=== PATIENT | female | born 1990 | race Caucasian/White ===

== ENCOUNTER → 2016-05-14 | Outpatient (REF) | payer OTHER ==
[~2016-05-14] MED LIST: ACET50TA PO; ANUS2.5C2 PR; COLA50CA3 PO; IBUP600T26 PO; MOM30SS PO; PRENTAB9 PO
== END ==
LOC: M SFHCLERA 14:57
PROVIDERS: ATTEND Physician Assistant
DX: R23.8 Other skin changes (principal); F41.9 Anxiety disorder, unspecified; Z53.9 Procedure and treatment not carried out, unspecified reason

== ENCOUNTER → 2016-05-21 | Outpatient (REF) | payer OTHER ==
[2016-05-21 11:38] LABS: MEAN CORPUSCULAR HEMOGLOBIN 29.5 pg (27.0-33.0); MEAN CORPUSCULAR HGB CONC 33.7 g/dl (32.0-36.5); MEAN CORPUSCULAR VOLUME 87.6 fl (80.0-96.0); RED CELL DISTRIBUTION WIDTH 12.9 % (11.5-14.5); WHITE BLOOD COUNT 6.4 K/mm3 (4.0-10.0)
[2016-05-21 11:43] LABS: INR 0.95
[2016-05-21 12:03] LABS: ALBUMIN 4.1 GM/DL (3.2-5.2); ALBUMIN/GLOBULIN RATIO 1.28 (1.00-1.93); ALKALINE PHOSPHATASE 79 U/L (45-117); ALT/SGPT 32 U/L (12-78); ANION GAP 6 MEQ/L (8-16); AST/SGOT 19 U/L (15-37); BILIRUBIN,TOTAL 0.8 MG/DL (0.2-1.0); BLOOD UREA NITROGEN 16 MG/DL (7-18); CALCIUM LEVEL 9.2 MG/DL (8.5-10.1); CARBON DIOXIDE LEVEL 28 MEQ/L (21-32); CHLORIDE LEVEL 107 MEQ/L (98-107); CREATININE FOR GFR 0.77 MG/DL (0.55-1.02); GLOMERULAR FILTRATION RATE > 60.0 (>60); GLUCOSE, FASTING 83 MG/DL (70-105); POTASSIUM SERUM 4.3 MEQ/L (3.5-5.1); SODIUM LEVEL 141 MEQ/L (136-145); TOTAL PROTEIN 7.3 GM/DL (6.4-8.2)
== END ==
LOC: M SFHCLERA 08:26
PROVIDERS: ATTEND Physician Assistant
DX: R23.8 Other skin changes (principal); F41.9 Anxiety disorder, unspecified

== ENCOUNTER → 2016-06-21 | Outpatient (CLI) | payer OTHER ==
[2016-06-21 11:45] LABS: BASO % 0.3 % (0.0-1.0); EOS % 0.3 % (0.0-3.0); LARGE UNSTAINED CELL # 0.1 K/mm3 (0.0-0.4); LARGE UNSTAINED CELL % 1.6 % (0.0-4.0); LYMPH # 2.7 K/mm3 (1.5-6.5); LYMPH % 33.9 % (24.0-44.0); MONO # 0.3 K/mm3 (0.0-0.8); MONO % 4.6 % (0.0-5.0); NEUTROPHILS # 4.4 K/mm3 (1.8-7.7); NEUTROPHILS % 59.4 % (36.0-66.0); PLATELET COUNT, AUTOMATED 181 k/mm3 (150-450); RED CELL DISTRIBUTION WIDTH 13.2 % (11.5-14.5); WHITE BLOOD COUNT 7.5 K/mm3 (4.0-10.0)
[2016-06-21 12:19] LABS: HBsAg Prenatal NEGATIVE (NEGATIVE)
[2016-06-21 12:46] LABS: HIV SCREEN CENTAUR NEGATIVE (NEGATIVE)
== END ==
LOC: M LRY 08:53
PROVIDERS: ATTEND Advanced Practice Midwife
DX: Z36 Encounter for antenatal screening of mother (principal); Z3A.00 Weeks of gestation of pregnancy not specified

== ENCOUNTER → 2016-06-25 | Outpatient (REF) | payer OTHER | LOC: M LAB REF 16:48 | PROVIDERS: ATTEND Advanced Practice Midwife | DX: Z34.81 Encounter for supervision of other normal pregnancy, first trimester (principal) ==

== ENCOUNTER → 2016-08-20 | Outpatient (REF) | payer OTHER | LOC: M LAB REF 10:56 | PROVIDERS: ATTEND Advanced Practice Midwife | DX: Z36 Encounter for antenatal screening of mother (principal); Z3A.00 Weeks of gestation of pregnancy not specified ==

== ENCOUNTER → 2016-09-14 | Outpatient (CLI) | payer OTHER ==
--- NOTE | 2016-09-14 08:32 | REP ---
Clinical: Anatomical evaluation. Comparison: None . Findings: Examination demonstrates a single live intrauterine in cephalic presentation. motion is identified by technologist. Placenta is noted anteriorly and grade zero without evidence for placenta previa or abruption. Amniotic fluid volume is normal. Cervix measures 4.0 cm in length and appears closed. No evidence for nuchal cord. Gestational age by LMP 19 weeks 5 days with LAUREEN 02/03/2017 . Gestational age by current measurements 20 weeks 2 days with LAUREEN 01/30/2017 . FHR equals 133 beats per minute. BPD 5.0 cm 21 weeks 1 day HC 17.2 cm 19 weeks 5 days AC 15.3 cm 20 weeks 3 days FL 3.2 cm 19 weeks 6 days HL 3.2 cm 20 weeks 4 days HC/AC ratio 1.13 Estimated weight 336 grams ( 63rd percentile). Anatomical assessment demonstrates normal structures including cranium, choroid plexus, cavum, cerebellum/posterior fossa, facial features, lungs, four-chamber heart/ventricular outflow tracts, diaphragm, stomach, cord insertion/three-vessel cord, kidneys/bladder, spine, and extremities. Impression: 1. Single live intrauterine in breech presentation demonstrating appropriate interval growth. 2. Anatomical assessment is complete and normal. No gross abnormalities are identified. Signed by Arnie Vargas MD 09/14/2016 08:24 A
== END ==
LOC: M RAD 09-10 15:19
PROVIDERS: ATTEND Advanced Practice Midwife
DX: Z34.82 Encounter for supervision of other normal pregnancy, second trimester (principal); Z3A.20 20 weeks gestation of pregnancy

== ENCOUNTER → 2016-09-24 | Outpatient (REF) | payer OTHER | LOC: M LAB REF 13:01 | PROVIDERS: ATTEND Advanced Practice Midwife | DX: Z36 Encounter for antenatal screening of mother (principal); Z3A.00 Weeks of gestation of pregnancy not specified ==

== ENCOUNTER → 2016-09-27 | Outpatient (CLI) | payer OTHER ==
--- NOTE | 2016-09-28 01:01 | REP ---
Clinical: with hematuria. Technique: Real time perez scale ultrasound examination using curved array transducer. Findings: The bilateral kidneys are normal in reniform shape and echogenicity demonstrating moderate hydronephrosis and proximal hydroureter. No obvious nephrolithiasis, cystic or mass lesion appreciated. Right ovary measures 11.1 x 4.6 x 4.7 cm. Left ovary measures 10.9 x 4.6 x 5.5 cm. Bladder is incompletely evaluated. 22-week noted. Impression: Moderate hydronephrosis without obvious nephrolithiasis likely induced. Signed by Arnie Vargas MD 09/28/2016 12:52 A
== END ==
LOC: M RAD 12:27
PROVIDERS: ATTEND Advanced Practice Midwife
DX: O99.89 Other specified diseases and conditions complicating pregnancy, childbirth and the puerperium (principal); R31.9 Hematuria, unspecified; N13.2 Hydronephrosis with renal and ureteral calculous obstruction

== ENCOUNTER → 2016-11-03 | Outpatient (CLI) | payer OTHER ==
[2016-11-03 14:07] LABS: BASO % 0.2 % (0.0-1.0); EOS % 0.3 % (0.0-3.0); LARGE UNSTAINED CELL # 0.1 K/mm3 (0.0-0.4); LARGE UNSTAINED CELL % 1.1 % (0.0-4.0); LYMPH # 2.5 K/mm3 (1.5-6.5); LYMPH % 21.5 % (24.0-44.0); MEAN CORPUSCULAR HEMOGLOBIN 32.5 pg (27.0-33.0); MEAN CORPUSCULAR HGB CONC 34.9 g/dl (32.0-36.5); MEAN CORPUSCULAR VOLUME 93.1 fl (80.0-96.0); MONO # 0.5 K/mm3 (0.0-0.8); MONO % 4.7 % (0.0-5.0); NEUTROPHILS # 7.8 K/mm3 (1.8-7.7); NEUTROPHILS % 72.2 % (36.0-66.0); PLATELET COUNT, AUTOMATED 212 k/mm3 (150-450); RED CELL DISTRIBUTION WIDTH 13.1 % (11.5-14.5); WHITE BLOOD COUNT 10.8 K/mm3 (4.0-10.0)
== END ==
LOC: M SMT 09:18
PROVIDERS: ATTEND Specialist
DX: Z36 Encounter for antenatal screening of mother (principal); Z3A.00 Weeks of gestation of pregnancy not specified

== ENCOUNTER → 2017-01-06 | Outpatient (REF) | payer OTHER ==
[~2017-01-06] MED LIST changes: +IBUP-1114 PO; +ZOLO50TA PO
== END ==
LOC: M LAB REF 17:04
PROVIDERS: ATTEND Advanced Practice Midwife
DX: Z34.83 Encounter for supervision of other normal pregnancy, third trimester (principal)

== ENCOUNTER 2017-01-28 03:52 | Inpatient (IN) | payer OTHER ==
[2017-01-28] VITALS (13 sets, daily range): BP systolic 108–133; BP diastolic 55–83
[~2017-01-28] VITALS: Ht 165.1 cm; Wt 77.3 kg
[~2017-01-28 03:52] MED LIST changes: -IBUP-1114 PO; -ZOLO50TA PO
[2017-01-28 04:50] LABS: MEAN CORPUSCULAR HGB CONC 34.4 g/dl (32.0-36.5); MEAN CORPUSCULAR VOLUME 90.2 fl (80.0-96.0); PLATELET COUNT, AUTOMATED 228 10^3/uL (150-450); RED CELL DISTRIBUTION WIDTH 13.3 % (11.5-14.5); WHITE BLOOD COUNT 14.5 10^3/uL (4.0-10.0)
--- NOTE | 2017-01-28 04:51 | HPEPDOC ---
[facility] Medical History & Physical Date of Admission Jan 28, 2017 Attending Physician: Jaqui Renee CNM History and Physical HISTORY & PHYSICAL EXAMINATION DATE OF ADMISSION: 01/28/2017 26-year-old, 2, para 1001, at 39 1/7 weeks gestation by last menstrual period of 04/29/2016 for an estimated date of delivery of 02/03/2017 presents with complaints of contractions starting around 0130. Upon evaluation, she is 5-6 cm, 70% effaced, -1station. She reports active movement. Denies loss of fluid light bloody show. Sono at 8 weeks 5 days confirmed her due date. Prepregnancy weight was 135lb. Total weight gain 20 pounds. She has been normotensive through the . Last office visit was at 38 weeks 4 days on 01/24/2017. has been uncomplicated. Anatomy scan within normal limits. OB HISTORY: 09/2012- 38 0/7 wks [id number] 15 oz ALLERGIES: KNDA MEDICAL/SURGICAL HISTORY: depression, stopped Zoloft in the first trimester. Will resume immediately post FAMILY HISTORY: Noncontributory. SOCIAL HISTORY: . Father of the baby is present at the bedside, Supportive. Denies tobacco, alcohol or drugs. No history sexually transmitted infections. OBJECTIVE: Labs are B+, antibody negative. Initial hemoglobin and hematocrit 14.2 and 41.6 with platelets of 181. Rubella immune. VDRL, hepatitis B, hepatitis C, HIV, gonorrhea, chlamydia all negative. Genetic screening declined. 1 hour GCT 72. Group B strep is negative. VITAL SIGNS: Stable. Patient able to talk, coping well. Breathing with contractions.. Abdomen is soft , gravid, nontender, longitudinal lie, vertex by Moise. Contractions irregular approximately 5 minutes apart, moderate to palpation. heart 150 , moderate variability with accelerations, + variables, category 1 tracing. Sterile vaginal exam: 5-6cm, 70% effaced, -1station, intact membranes and cephalic. ASSESSMENT: 26-year-old, 2, at 39 weeks 1 days gestation, in active labor, category 1 tracing. PLAN: Admit to L and D with routine orders. Labor at ruddy. Anticipate normal spontaneous vaginal . Home Medications Scheduled () 1 Tab Tab, 1 TAB PO DAILY Acetaminophen (Tylenol) 500 Mg Tab, 1,000 MG PO Q6HP Docusate Sodium (Colace) 50 Mg Cap, 100 MG PO QHSP Hydrocortisone Base (Anusol-Hc) 2.5 % Cre, 2.5 % MA Q4HP Ibuprofen (Motrin, Advil) 600 Mg Tab, 600 MG PO Q6HP Milk Of Magnesia (Milk Of Magnesia Conc) 30 Ml Conc, 30 ML PO DAILYPRN Allergies Coded Allergies: No Known Allergies (Unverified , 10/02/12) Jaqui Renee CNM Jan 28, 2017 04:51
[2017-01-28] MEDS ORDERED: OXYTOCIN 30 UNITS IN 0.9% NaCl 500ML IV BAG (J2590) As Ordered ONE (06:19)
[2017-01-28] MEDS ORDERED: OXYTOCIN DRIP 30 UNITS in APPROPRIATE DILUENT 1 EA IV SCH (08:04)
[2017-01-28] MEDS ORDERED: LR 1,000 ML IV SCH (08:04)
[2017-01-28] MEDS: IBUPROFEN 800 MG TAB PO PRN ×3 (08:12→22:06)
[2017-01-28] MEDS ORDERED: ACETAMINOPHEN 500 MG TAB PO PRN (08:15)
[2017-01-28] MEDS ORDERED: MOM 30ML SUSPENSION UDC PO PRN (08:15)
[2017-01-28] MEDS ORDERED: METHYLERGONOVINE MALEATE 0.2 MG TAB PO PRN (08:15)
[2017-01-28] MEDS ORDERED: RHOGAM 300 MCG (1500 IU) INJ (J2790) IM SCH (08:15)
[2017-01-28] MEDS ORDERED: ANUSOL HC CREAM 30GM TOP PRN (08:15)
[2017-01-28] MEDS ORDERED: MEASLES,MUMPS,RUBELLA VACCINE INJ (MMR-II) (90707) SC SCH (08:15)
[2017-01-28] MEDS ORDERED: DIBUCAINE 1% OINTMENT 30GM TOP PRN (08:15)
[2017-01-28] MEDS ORDERED: LIDOCAINE 1% MDV INJ 50 ML VIAL INFIL ONE (08:15)
[2017-01-28] MEDS ORDERED: DOCUSATE SODIUM 100 MG CAP PO PRN (08:15)
--- NOTE | 2017-01-28 08:20 | DNPDOC ---
[facility] Delivery Note Delivery Note DATE OF DELIVERY: 01/28/2017 PREDELIVERY DIAGNOSIS: 39 1/7 weeks' gestation and labor. POST DELIVERY DIAGNOSIS: Delivered. PROCEDURE: Spontaneous vaginal delivery. PROVIDER: Maria Del Rosario JANE and Mirian Renee CNM ANESTHESIA: none. ESTIMATED BLOOD LOSS: 200 mL. FINDINGS: 6 pound 15 ounce male , Score 8/9, with a compound presentation of posterior left hand. DELIVERY SUMMARY: Patient is a 27-year-old 2 now para 2001 who was admitted to labor and delivery spontaneous active labor that started around 0100. AROM at 0613, small clear odorless fluid. Strong maternal bearing down efforts, anterior rim reduced. Fully dilated at 0735. Viable male infant delivered OA to LOT with a compound presentation of posterior left hand at 0740. Infant brought to maternal abdomen for transitioning. Cord clamped times 2 and cut by FOB after pulsation ceased under my direction. Placenta Brooks, intact with three vessel cord delivered at 0749. Fundus firm with massage and IV Pitocin bolus with excellent hemostasis. EBL 200ml. Perineum, cervix and vagina inspected. Bilateral labia lacerations noted. Repaired left labial with a vicryl rapide 3-0. Infant weighed 6lb 15 oz/ 3160g, apgars 8/9. Parents are naming their Gurinder. Jaqui Renee CNM Jan 28, 2017 08:20
[2017-01-28] MEDS: PRENATAL VITAMINS CHEWABLE TABLET PO SCH (10:05)
[2017-01-28] MEDS: SERTRALINE HCL 50 MG TAB PO SCH (11:39)
[2017-01-29] MEDS: IBUPROFEN 800 MG TAB PO PRN (05:40)
[2017-01-29 06:00] VITALS: BP 97/53
[2017-01-29] MEDS: PRENATAL VITAMINS CHEWABLE TABLET PO SCH (07:49)
[2017-01-29] MEDS: SERTRALINE HCL 50 MG TAB PO SCH (07:49)
[2017-01-29 18:00] VITALS: BP 110/61
[2017-01-30] MEDS: IBUPROFEN 800 MG TAB PO PRN (01:55)
[2017-01-30 06:04] VITALS: BP 103/61
[2017-01-30] MEDS ORDERED: ZOLO50TA PO (10:19)
[2017-01-30] MEDS ORDERED: ACET50TA PO (10:20)
[2017-01-30] MEDS ORDERED: IBUP-1114 PO (10:21)
[2017-01-30] MEDS: SERTRALINE HCL 50 MG TAB PO SCH (10:29)
[2017-01-30] MEDS: PRENATAL VITAMINS CHEWABLE TABLET PO SCH (10:29)
== END 2017-01-30 10:45 | disposition home or self-care (01) | DRG 775 ==
LOC: M LDO 03:52 → M LDI 04:35 → M OBS 09:52
PROVIDERS: ADMIT Advanced Practice Midwife; ATTEND Advanced Practice Midwife
PROC: 10E0XZZ Delivery of Products of Conception, External Approach (ICD-10-PCS; principal; 2017-01-28)
PROC: 10907ZC Drainage of Amniotic Fluid, Therapeutic from Products of Conception, Via Natural or Artificial Opening (ICD-10-PCS; 2017-01-28)
PROC: 0HQ9XZZ Repair Perineum Skin, External Approach (ICD-10-PCS; 2017-01-28)
DX: O64.5XX0 Obstructed labor due to compound presentation, not applicable or unspecified (principal); Z37.0 Single live birth; Z3A.39 39 weeks gestation of pregnancy; Z79.899 Other long term (current) drug therapy; O70.0 First degree perineal laceration during delivery

== ENCOUNTER → 2017-04-07 | Outpatient (REF) | payer OTHER | LOC: M LAB REF 17:14 | DX: Z12.4 Encounter for screening for malignant neoplasm of cervix (principal) ==